=== PATIENT | male | born 1960 | race Caucasian/White ===

== ENCOUNTER 2023-01-11 11:50 | Emergency (ER) | payer SELFPAY ==
[~2023-01-11] VITALS: Ht 172.7 cm; Wt 97.7 kg
[2023-01-11] MEDS ORDERED: ACETAMINOPHEN WITH CODEINE 300/30MG TABLET PO NR (13:30)
[2023-01-11 13:51] VITALS: BP 128/86
[2023-01-11] MEDS ORDERED: NAPR-1074 MT (14:47)
[2023-01-11] MEDS ORDERED: T3 PO (14:47)
== END 2023-01-11 15:17 | disposition home or self-care (01) ==
LOC: ER 11:50
DX: S42.291A Other displaced fracture of upper end of right humerus, initial encounter for closed fracture (principal); W18.39XA Other fall on same level, initial encounter; Y93.89 Activity, other specified; Y92.89 Other specified places as the place of occurrence of the external cause; Y99.8 Other external cause status; J45.909 Unspecified asthma, uncomplicated
CPT/HCPCS: 73030; 99283; Z7610; A4565